=== PATIENT | male | born 1940 | race Caucasian/White ===

== ENCOUNTER 2017-10-15 04:31 | Emergency (ER) | payer OTHER ==
[~2017-10-15] VITALS: Ht 167.6 cm; Wt 121.6 kg
[~2017-10-15 04:31] MED LIST: ACET325 PO; ACET500 PO; ALLO100 PO; AMLO5 PO; ASPI325 PO; ATOR10; ATOR40TA PO; Aldactone25 MG PO; Allopurinol100 MG PO; Aspir 8181 MG PO; Aspirin EC81 MG; BENA20 PO; BUME2 PO; CALC.25; CALC.25 PO; CEFAZOLIN2 GM/50 ML IV; CEPH500; CEPH500 PO; CIPRO500 MG PO; COLL250TO TOP; Cleocin HCl300 MG PO; Clindamycin HC300 MG PO; Coumadin3 MG PO; ENOX40I SQ; ERGO50000 PO; FENO145 PO; FENO160 PO; FURO20 PO; FURO40 PO; FURO80 PO; Flagyl500 MG PO; GABA400 PO; GABA600 PO; HYDACE10B PO; HYDCHL25 PO; HYDR1TAB94 PO; Keflex500 MG PO; LEVOFLOXAC500 MG/100 IV; LORCET HD 10-31 EACH PO; LOVA40 PO; Lovastatin20 MG; Lovastatin20 MG PO; METF500 PO; METO2.5; METO2.5 PO; METO25ER PO; METO50 PO; METO50ER PO; Mirapex0.25 MG PO; Multivitamin1 EAC1 PO; NYSTRIT TOP; Neurontin600 MG PO; Novolog Fl100 UNIT/1 SC; PARI1 PO; POTA10T PO; POTCHL10ER PO; PRAM.125; PRAM.5 PO; Potassium Chlo10 ME1 PO; RXTRAM50 PO; SENN187 PO; SILSUL1TC TOP; SPIR25; SULTRIDS PO; Silvadene20 GM; TRAM50 PO; TRAZ50 PO; VANCOMYCIN IV; WARF1; WARF2.5 PO; WARF3 PO; WARF4 PO; WARF6 PO; WARF7.5; WARFARIN SODIUM 3 MG
[2017-10-15 04:53] LABS: Hematocrit 33.5 % (37.0-53.0); Hemoglobin 10.8 g/dL (13.5-17.5); Mean Corpuscular HGB 30.9 pg (26.0-34.0); Mean Corpuscular HGB Conc 32.2 g/dL (31.5-36.5); Mean Corpuscular Volume 96 fL (80-100); Mean Platelet Volume 8.9 fL (9.1-12.4); Platelet Count 275 K/mm3 (150-400); RDW Coefficient Variation 15.1 % (11.7-14.2); RDW Standard Deviation 53.8 fL (35.1-46.3); Red Blood Cell Count 3.49 M/mm3 (4.30-5.90); White Blood Cell Count 5.98 K/mm3 (4.00-11.30)
[2017-10-15 05:07] LABS: International Normalized Ratio 1.77; Prothrombin Time Results 18.7 Sec (9.7-11.5)
[2017-10-15 05:12] LABS: Alanine Aminotransfer (ALT/SGP 16 U/L (12-78); Albumin/Globulin Ratio 0.7 (0.8-1.8); Alk Phos 78 U/L (50-136); Anion Gap 8 mmol/L (6-16); Aspartate Aminotrans (AST/SGOT 13 U/L (12-37); Bilirubin, Total 0.5 mg/dL (0.1-1.0); Blood Urea Nitrogen 29 mg/dL (8-24); Bun/Creatinine Ratio 26.6 (12.0-20.0); CO2, Blood 30 mmol/L (21-32); Calcium, Blood 9.2 mg/dL (8.5-10.1); Chloride, Blood 102 mmol/L (98-108); Creatinine, Blood 1.09 mg/dL (0.60-1.20); Globulin, Blood 4.4 g/dL (2.2-4.0); Glomerular Filtration Rate >60 (60-); Glucose, Blood 120 mg/dL (70-99); Potassium, Blood 3.6 mmol/L (3.5-5.5); Sodium, Blood 140 mmol/L (136-145); Total Protein, Blood 7.4 g/dL (6.4-8.2)
[2017-10-15] MEDS ORDERED: BUME1 PO (05:12)
[2017-10-15] MEDS ORDERED: POTCHL10ER PO (05:14)
[2017-10-15 05:37] LABS: BAND PERCENT MAN 1 % (0-8); BASOPHILS ABSOLUTE MAN 0.05 K/mm3 (0.00-0.23); BASOPHILS PERCENT MAN 1 % (0-2); EOSINOPHILS ABSOLUTE MAN 0.17 K/mm3 (0.00-0.68); EOSINOPHILS PERCENT MAN 3 % (0-6); LYMPHOCYTES % ATYPICAL MANUAL 2 % (0-0); LYMPHOCYTES ABSOLUTE MAN 2.03 K/mm3 (0.84-5.20); LYMPHOCYTES PERCENT MAN 32 % (21-46); MONOCYTES ABSOLUTE MAN 0.53 K/mm3 (0.16-1.47); MONOCYTES PERCENT MAN 9 % (4-13); NEUTROPHILS ABSOLUTE MAN 3.16 K/mm3 (1.96-9.15); SEG NEUTROPHILS PERCENT MAN 52 % (41-73); TOTAL CELLS COUNTED 100
[2017-10-15 05:41] LABS: Troponin I <0.015 ng/mL (0.000-0.040)
[2018-01-17] MEDS ORDERED: CLOB.05TO TOP (17:34)
[2018-05-25] MEDS ORDERED: TAMS.4ER PO (13:33)
[2018-05-25] MEDS ORDERED: DEEP SEA44 ML (20:07)
[2018-05-25] MEDS ORDERED: Vitamin B-121000 MCG PO (20:13)
[2018-05-25] MEDS ORDERED: CHOL10002 PO (20:13)
[2018-05-25] MEDS ORDERED: Therems-M1 EACH PO (20:14)
[2018-05-25] MEDS ORDERED: VITA TOP (20:15)
[2018-05-25] MEDS ORDERED: [UNRECOGNIZED DRUG - OTHER] TOP (20:15)
[2018-05-25] MEDS ORDERED: GABA100 PO (20:15)
[2018-05-25] MEDS ORDERED: PRAM.5 PO (20:16)
[2018-05-25] MEDS ORDERED: HYDR1TAB94 PO (20:30)
[2018-06-29] MEDS ORDERED: METO50 PO (12:02)
[2018-06-29] MEDS ORDERED: Acetaminophen325 M1 PO (12:05)
[2018-06-29] MEDS ORDERED: ALBU90OI INH (12:06)
[2018-06-29] MEDS ORDERED: AMLO5 PO (12:06)
[2018-06-29] MEDS ORDERED: CLON.3 PO (12:08)
[2018-06-29] MEDS ORDERED: CLON.1 PO (12:08)
[2018-06-29] MEDS ORDERED: Docu Liqui50 MG/5 ML PO (12:09)
[2018-06-29] MEDS ORDERED: INSULANPEN SC (12:10)
[2018-06-29] MEDS ORDERED: LIDO700A20 TOP (12:10)
[2018-06-29] MEDS ORDERED: LORA.5 PO (12:10)
[2018-06-29] MEDS ORDERED: DOXY100 PO (12:11)
[2018-06-29] MEDS ORDERED: Humalog100 UNIT/3 SC (12:11)
[2018-06-29] MEDS ORDERED: OLAN5 PO (12:11)
[2018-06-29] MEDS ORDERED: METOCLOPRAMIDE H5 MG PO (12:12)
[2018-06-29] MEDS ORDERED: CVS DISPOSABLE399 ML PR (12:13)
[2018-06-29] MEDS ORDERED: OMEPRAZOLE MAGN20 MG PO (12:14)
== END 2017-10-15 08:25 | disposition home or self-care (01) ==
LOC: ER 04:31
PROVIDERS: Emergency Medicine
DX: S09.90XA Unspecified injury of head, initial encounter (principal); S01.412A Laceration without foreign body of left cheek and temporomandibular area, initial encounter; I48.91 Unspecified atrial fibrillation; D64.9 Anemia, unspecified; E11.9 Type 2 diabetes mellitus without complications; I10 Essential (primary) hypertension; E78.5 Hyperlipidemia, unspecified; Z88.1 Allergy status to other antibiotic agents; Z88.0 Allergy status to penicillin; Z79.899 Other long term (current) drug therapy; Z79.01 Long term (current) use of anticoagulants; Z79.4 Long term (current) use of insulin; Z79.82 Long term (current) use of aspirin; Z87.891 Personal history of nicotine dependence; W06.XXXA Fall from bed, initial encounter
CPT/HCPCS: 70450; 72125; 80053; 84484; 85025; 85610; 85730; 93005; 93010; 99284

== ENCOUNTER 2018-01-17 16:29 | Emergency (ER) | payer OTHER ==
[~2018-01-17] VITALS: Ht 167.6 cm; Wt 127.0 kg
[~2018-01-17 16:29] MED LIST changes: +BUME1 PO; +POTCHL10ER
[2018-01-17] MEDS ORDERED: NASAL SPRAY30 ML (16:46)
[2018-01-17 17:30] LABS: Calcium, Ionized (POC) 1.21 mmol/L (1.10-1.46); Chloride (POC) 104 mmol/L (98-108); Creatinine (POC) 1.2 mg/dL (0.8-1.3); Glucose (ISTAT POC) 106 mg/dL (70-99); Hemoglobin (POC) 12.2 g/dL (13.5-17.5); Potassium (POC) 4.4 mmol/L (3.5-5.5); Sodium (POC) 141 mmol/L (135-148); Total CO2 (POC) 28 mmol/L (21-32)
[2018-01-17] MEDS ORDERED: CLOB.05TO (17:34)
[2018-01-17] MEDS ORDERED: Bactrim Ds Tab1 EACH PO (17:37)
[2018-01-17] MEDS ORDERED: Flagyl500 MG PO (17:37)
== END 2018-01-17 19:00 | disposition home or self-care (01) ==
LOC: ER 16:29
PROVIDERS: Emergency Medicine
DX: L03.311 Cellulitis of abdominal wall (principal); E11.40 Type 2 diabetes mellitus with diabetic neuropathy, unspecified; I10 Essential (primary) hypertension; E78.5 Hyperlipidemia, unspecified; Z79.899 Other long term (current) drug therapy; Z79.01 Long term (current) use of anticoagulants; Z79.82 Long term (current) use of aspirin; Z79.4 Long term (current) use of insulin
CPT/HCPCS: 36415; 80047; 85014; 99283

== ENCOUNTER 2018-01-22 16:55 | Emergency (ER) | payer OTHER ==
[~2018-01-22] VITALS: Ht 167.6 cm; Wt 127.9 kg
[~2018-01-22 16:55] MED LIST changes: +Bactrim Ds Tab1 EACH PO; +CLOB.05TO; +NASAL SPRAY30 ML
[2018-01-22] MEDS ORDERED: WARF3 PO (17:12)
[2018-01-22] MEDS ORDERED: METR500 PO (17:13)
[2018-01-22] MEDS ORDERED: WARF6 PO (17:13)
[2018-01-22] MEDS ORDERED: Bactrim 400-801 EACH PO (17:13)
[2018-01-22 18:06] LABS: BASOPHILS ABSOLUTE AUTO 0.02 K/mm3 (0.00-0.23); BASOPHILS PERCENT AUTO 0 % (0-2); EOSINOPHILS ABSOLUTE AUTO 0.21 K/mm3 (0.00-0.68); EOSINOPHILS PERCENT AUTO 4 % (0-6); Hematocrit 35.7 % (37.0-53.0); Hemoglobin 11.9 g/dL (13.5-17.5); IMMATURE GRAN ABSOLUTE AUTO 0.01 K/mm3 (0.00-0.10); IMMATURE GRAN PERCENT AUTO 0 % (0-1); LYMPHOCYTES ABSOLUTE AUTO 1.13 K/mm3 (0.84-5.20); LYMPHOCYTES PERCENT AUTO 20 % (21-46); MONOCYTES ABSOLUTE AUTO 0.77 K/mm3 (0.16-1.47); MONOCYTES PERCENT AUTO 14 % (4-13); Mean Corpuscular HGB 32.1 pg (26.0-34.0); Mean Corpuscular HGB Conc 33.3 g/dL (31.5-36.5); Mean Corpuscular Volume 96 fL (80-100); Mean Platelet Volume 9.7 fL (9.1-12.4); NEUTROPHILS ABSOLUTE AUTO 3.54 K/mm3 (1.96-9.15); NEUTROPHILS PERCENT AUTO 62 % (41-73); Platelet Count 205 K/mm3 (150-400); RDW Coefficient Variation 15.2 % (11.7-14.2); RDW Standard Deviation 53.8 fL (35.1-46.3); Red Blood Cell Count 3.71 M/mm3 (4.30-5.90); White Blood Cell Count 5.68 K/mm3 (4.00-11.30)
[2018-01-22 18:17] LABS: International Normalized Ratio 3.58; Prothrombin Time Results 38.7 Sec (9.7-11.5)
[2018-01-22 18:25] LABS: Albumin, Blood 3.3 g/dL (3.4-5.0); Bilirubin, Total 0.5 mg/dL (0.1-1.0); Bun/Creatinine Ratio 22.6 (12.0-20.0); Calcium, Blood 8.6 mg/dL (8.5-10.1); Creatinine, Blood 1.68 mg/dL (0.60-1.20); Globulin, Blood 3.4 g/dL (2.2-4.0); Potassium, Blood 4.8 mmol/L (3.5-5.5); Total Protein, Blood 6.7 g/dL (6.4-8.2)
== END 2018-01-22 20:16 | disposition home or self-care (01) ==
LOC: ER 16:55
PROVIDERS: Internal Medicine
DX: S51.012A Laceration without foreign body of left elbow, initial encounter (principal); S16.1XXA Strain of muscle, fascia and tendon at neck level, initial encounter; S40.011A Contusion of right shoulder, initial encounter; S00.03XA Contusion of scalp, initial encounter; E11.9 Type 2 diabetes mellitus without complications; I10 Essential (primary) hypertension; E78.5 Hyperlipidemia, unspecified; Z87.891 Personal history of nicotine dependence; Z79.899 Other long term (current) drug therapy; Z79.01 Long term (current) use of anticoagulants; Z79.82 Long term (current) use of aspirin; Z79.4 Long term (current) use of insulin; Z88.1 Allergy status to other antibiotic agents; Z88.0 Allergy status to penicillin; W06.XXXA Fall from bed, initial encounter
CPT/HCPCS: 70450; 72125; 80053; 85025; 85610; 96360; 99284; J7120